=== PATIENT | female | born 1965 | race Caucasian/White ===

== ENCOUNTER 2017-05-21 20:18 | Emergency (ER) | payer BC ==
[2017-05-21 20:36] VITALS: BP 90/49
--- NOTE | 2017-05-21 20:46 | UC ---
Hand/Wrist HPI - HPI Summary HPI Summary: Left hand fourth digit injury about 2 weeks ago when the dog lead got wrapped around her digit and the dog pulled (vigorous 70 pound dog). Splinted for a couple of days, and ecchymosis and swelling gradually decreased. Now has persistent pain distal IP joint and in the middle phalanx, which is also the location of the most persistent swelling. Right hand dominant. - History Of Current Complaint Chief Complaint: UCUpperExtremity Stated Complaint: FINGER INJURY Time Seen by Provider: 05/21/17 20:39 Hx Obtained From: Patient Hx Last Menstrual Period: 2 WEEKS AGO Onset/Duration: Sudden Onset, Lasting Weeks - about 2 weeks ago Severity Initially: Moderate Severity Currently: Mild Character Of Pain: Aching, Throbbing Aggravating Factor(s): Movement Alleviating Factor(s): Rest, Other - splint Associated Signs And Symptoms: Positive: Swelling, Bruising Related History: Dominant Hand Right - Allergies/Home Medications Allergies/Adverse Reactions: Allergies Allergy/AdvReac Type Severity Reaction Status Date / Time No Known Allergies Allergy Verified 05/21/17 20:36 PMH/Surg Hx/FS Hx/Imm Hx - Additional Past Medical History Additional PMH: chronic anemia Endocrine History: Hypothyroidism GI/ History: Other - recent dx of celiac disease on egd. Other GI/ History: celiac disease - Surgical History Surgical History: Yes Surgery Procedure, Year, and Place: LEFT TRIMALEOLAR REPAIR, 2 X C-SECTIONS, RIGHT ANKLE SURGERY - Social History Occupation: Employed Full-time - nurse at Alcohol Use: Rare Alcohol Amount: 1-3 DRINKS/MONTH Substance Use Type: None Smoking Status (MU): Never Smoked Tobacco Type: Cigarettes Amount Used/How Often: LESS THEN PPD 10YRS Have You Smoked in the Last Year: No When Did the Patient Quit Smoking/Using Tobacco: 1999 Review of Systems Constitutional: Negative Skin: Negative Eyes: Negative ENT: Negative Respiratory: Negative Cardiovascular: Negative Gastrointestinal: Other - recent dx of celiac, cause of chronic anemia. Genitourinary: Negative Motor: Negative Neurovascular: Negative Musculoskeletal: Arthralgia Neurological: Negative Psychological: Negative Is Patient Immunocompromised?: No All Other Systems Reviewed And Are Negative: Yes Physical Exam Triage Information Reviewed: Yes Appearance: Well-Appearing, Pain Distress - mild Vital Signs: Initial Vital Signs Temp 97.5 F 05/21/17 20:33 Pulse 66 05/21/17 20:33 Resp 16 05/21/17 20:33 BP 90/49 05/21/17 20:33 Pulse Ox 100 05/21/17 20:33 Vital Signs Reviewed: Yes ENT: Positive: Normal ENT inspection Respiratory Exam: Normal Musculoskeletal: Positive: ROM Limited @ - Distal phalanx of left hand 4th digit. + swelling. Tenderness middle phalanx. Mild swelling proximally. Decreased flexion of the DIP joint. Neurological Exam: Normal Psychological Exam: Normal Skin Exam: Normal Diagnostics - Laboratory Diagnostic Studies Completed/Ordered: oblique fracture with displacement of the middle phalanx of the left 4th digit per . Radiology read oblique fracture of the middle phalanx without articular disruption Hand/Wrist Course/Dx - Course Course Of Treatment: oblique fracture of the middle phalanx of the left fourth digit - Differential Dx/Diagnosis Differential Diagnosis/HQI/PQRI: Fracture, Sprain, Strain Provider Diagnoses: oblique fracture of the left 4th digit middle phalanx. Discharge - Discharge Plan Condition: Stable Disposition: HOME Patient Education Materials: Finger Fracture (ED) Referrals: Christiano May DO [Primary Care Provider] - Bubba Ibarra MD [Medical Doctor] - Additional Instructions: Keep the finger splinted until assessed by orthopedics.
--- NOTE | 2017-05-21 21:18 | RAD ---
Indication: Pain and swelling middle phalanx and DIP joint LEFT fourth finger. Injury 2 weeks ago. Comparison: No relevant prior exams available on the [facility] PACS for comparison. Technique: AP, lateral, and oblique views LEFT fourth finger. REPORT AND IMPRESSION: Oblique proximal radial margin diaphyseal to distal ulnar margin epiphyseal fracture of the middle phalanx without definitive articular surface extension. One cortex width radial volar displacement. Negative for additional fracture. Normal articular alignment. Soft tissue swelling most prominent at the level of the distal interphalangeal joint.
== END 2017-05-21 21:45 | disposition home or self-care (01) ==
LOC: UCEAST 20:18
DX: S62.655A Nondisplaced fracture of middle phalanx of left ring finger, initial encounter for closed fracture (principal); W23.0XXA Caught, crushed, jammed, or pinched between moving objects, initial encounter; Y93.K1 Activity, walking an animal; Y92.9 Unspecified place or not applicable; R60.9 Edema, unspecified
CPT/HCPCS: 73140; 99212; G0463

== ENCOUNTER 2017-05-25 12:06 | Day surgery (SDC) | payer BC ==
[2017-05-25] MEDS ORDERED: Buffered Lidocaine 0.9% SYRIN* 5 ML/SYR SYRINGE ONE (12:12)
[2017-05-25] MEDS ORDERED: Buffered Lidocaine 0.9% SYRIN* 5 ML/SYR SYRINGE INTRADERM ONE (12:12)
[2017-05-25] MEDS ORDERED: ceFAZolin 2 GM PREMIX (*) 2 GM/50 ML BAG IVPB ONE (12:13)
[2017-05-25] MEDS ORDERED: Ondansetron INJ* 2 MG/ML VIAL IV PRN (12:21)
[2017-05-25] MEDS ORDERED: fentaNYL* 50 MCG/ML 2 ML VIAL (100 MCG VIAL) IV PRN (12:21)
[2017-05-25] MEDS ORDERED: PROCHLORPERAZINE INJ 5 MG/ML 2 ML VIAL IV PRN (12:21)
[2017-05-25] MEDS ORDERED: DiMENhydriNATE IV* 50 MG/ML VIAL IV PUSH PRN (12:21)
[2017-05-25] MEDS ORDERED: Acetaminophen TAB* 325 MG PO PRN (12:21)
[2017-05-25] MEDS ORDERED: HYDROcodone/ACETAMIN 5-325 MG* 1 TAB PO PRN (12:21)
[2017-05-25] MEDS ORDERED: Midazolam* 1 MG/ML 2 ML VIAL (2 MG) ONE (15:29)
[2017-05-25] MEDS ORDERED: fentaNYL* 50 MCG/ML 2 ML VIAL (100 MCG VIAL) ONE ×3 (15:29→17:56)
[2017-05-25] MEDS ORDERED: Midazolam* 1 MG/ML 5 ML VIAL (5 MG) ONE (17:01)
[2017-05-25] MEDS ORDERED: Propofol* 10 MG/ML 20 ML BTL IV PUSH ONE ×2 (17:14→17:45)
[2017-05-25] MEDS ORDERED: Lidocaine 2% PF * 5 ML VIAL ONE (17:14)
[2017-05-25] MEDS ORDERED: Bupivacaine 0.25% SDV* 30 ML ONE (17:18)
[2017-05-25] MEDS ORDERED: Ondansetron INJ* 2 MG/ML VIAL ONE (18:12)
[2017-05-25 19:40] VITALS: BP 104/65
--- NOTE | 2017-05-25 20:38 | RAD ---
CPT II Codes: 6045F INDICATION: Left ring finger fracture TECHNIQUE: Intraoperative fluoroscopy was provided during ORIF of fractured left ring finger middle phalanx. FINDINGS: 4 spot films depict percutaneous pinning and single medullary screw fixation at the fractured middle phalanx.. Fluoroscopy time: 16 seconds IMPRESSION: As above.
--- NOTE | 2017-05-26 13:10 | OP ---
OPERATIVE REPORT: DATE OF OPERATION: 05/25/17 DATE OF : 69 SURGEON: Fei Lopez MD. CAROUSEL OPERATOR: DWIGHT Adams. An culture media laboratory assistant was needed for the procedure to aid in positioning of the arm and help with reduction of the fragments. ANESTHESIOLOGIST: Dr. Tejada. ANESTHESIA: Local MAC with digital block. PRE-OP DIAGNOSIS: Displaced left ring finger, middle phalanx, intraarticular condylar fracture. POST-OP DIAGNOSIS: Displaced left ring finger, middle phalanx, intraarticular condylar fracture. OPERATIVE PROCEDURE: Open reduction and internal fixation, left ring finger middle phalanx, intraart icular condylar fracture. INDICATIONS: Marian came to the office a couple of weeks out from the injury. The finger was deformed and not functioning appropriately. Her pain was starting to subside but finger was in an odd positi on. I showed her her x-rays. We talked about essential surgical intervention. She wants to proceed with surgery. ESTIMATED BLOOD LOSS: 2 mL. COMPLICATIONS: None. FINDINGS: As expected. DESCRIPTION OF PROCEDURE: Marian was seen in the preoperative holding area. The correct side, site an d procedure were identified. We came back to the operating room. She got some anesthesia. The hand was washed and I performed a digital block with 0.25% plain Marcaine. The arm was then prepped and draped in the usual fashion. Time-out was performed. I exsanguinated the arm with Esmarch and tourniquet was inflated to 250 mmHg. The fracture would not reduced closed. We opened the skin via a curvilinear flap over the middle phalanx. I came just to the radial aspect of the extensor mechanism. The fracture callous was all excised with a [place] blade . The fracture was mobilized. It was a bit difficult to reduce, but ultimately we were able to get it reduced with a clamp in place. We placed one 1.3 mm lag screw. More distal to that, it would hav e been to difficult to get another screw without taking down the collateral ligament, so I went ahead and placed two 0.8 mm K wires across the fracture site. These were all from the [employer] variable an gle handset. Everything was looking good. The final fluoroscopic images showed excellent alignment of the joint. The wound was irrigated. Skin was closed with 4-0 nylon suture. Pins were bent and c lipped. They were dressed with Xeroform, 4x4, sterile Webril, and then a short-arm ulnar gutter spli nt, grabbing the middle, ring, and small fingers, was placed with the hand in the protected position. She was then taken to the recovery room in stable condition. [id number]/[facility] #: [id number]
== END 2017-05-25 19:56 | disposition home or self-care (01) ==
LOC: OR 12:06
PROVIDERS: ATTEND Orthopaedic Surgery Hand Surgery
DX: S62.623A Displaced fracture of middle phalanx of left middle finger, initial encounter for closed fracture (principal); E03.9 Hypothyroidism, unspecified; D64.9 Anemia, unspecified; K90.0 Celiac disease; X58.XXXA Exposure to other specified factors, initial encounter; Y92.9 Unspecified place or not applicable
CPT/HCPCS: 76000; 81025; C1776; J0690; J2250; J2405; J2704; J3010